=== PATIENT | male | born 1980 | race Caucasian/White ===

== ENCOUNTER 2017-01-26 15:02 | Emergency (ER) | payer OTHER ==
--- NOTE | 2017-01-26 16:48 | ED CLINICAL REPORT ---
Clinical Report - Physicians/Mid Levels [facility] [address] [place] [address] 01/26/2017 15:04 Patient: LEEANNE PIERCE Time Seen: 16:08 Jan 26 2017. Arrived- By private vehicle. Historian- patient. HISTORY OF PRESENT ILLNESS Chief Complaint: BACK PAIN. Onset was just prior to arrival and it is still present. It is described as being in the area of the mid lumbar spine. No bladder dysfunction or bowel dysfunction. Additional history - Reports doing some light activity on , and then lifting and opening of fridge up on Thursday, the and experiencing pain, pain not worsened with movement. Reports history of similar pain from a previous work-related injury with a bulging disc. Denies any new direct trauma or fall to the area. She has had previous MRI, previous injections, as well as has been using anti-inflammatories, Motrin as well as ice of the last 4 days. He has had. Patient notes a recent injury. REVIEW OF SYSTEMS No fever, chills, difficulty with urination, urinary frequency or cough. No difficulty breathing or nausea. All systems otherwise negative, except as recorded above. PAST HISTORY Problems: Back Pain. Medications: Ibuprofen Oral. Tramadol HCL Oral. Lyrica Oral. Allergies: No Known Drug Allergy. SOCIAL HISTORY Smoker- current status unknown. No alcohol use or drug use. ADDITIONAL NOTES The nursing notes have been reviewed. PHYSICAL EXAM Vital Signs: 01/26/2017 15:13 BP: 123/85. HR: 75. RR: 18. O2 saturation: 97%. Temp: 98.4 F. Pain level now: 9/10. Appearance: Alert. Eyes: Pupils equal, round and reactive to light. ENT: Ears normal. Neck: Normal inspection. No vertebral tenderness. CVS: Heart sounds normal. Pulses normal. Respiratory: No respiratory distress. Abdomen: No visible injury. Soft. Back: Soft tissue tenderness (Right lumbar region.). Neuro: Oriented X 3. No motor deficit. No sensory deficit. Reflex exam: right patellar 2+, left patellar 2+, right Achilles 2+ and left Achilles 2+. PROGRESS AND PROCEDURES Course of Care: patient with no red flags. No saddle anesthesia. No history of IV drug abuse. No direct trauma or fall. He able to ambulate. No imminent signs of paralysis. 01/26/2017 15:13 BP: 123/85. HR: 75. RR: 18. O2 saturation: 97%. Temp: 98.4 F. Pain level now: 9/10. Patient is stable. Symptoms better. Patient/family counseled. Disposition: Discharged. Condition: good. CLINICAL IMPRESSION Acute lumbar strain. INSTRUCTIONS Apply ice. Limit lifting. Rest. Prescription Medications: Hydrocodone/APAP 5mg / 325mg: take 1 orally every 6 hours as needed for pain. Dispense twelve (12). No refill. Valium 5 mg: take 1 orally every 12 hours for 5 days as needed for muscle spasm. Dispense ten (10). No refill. Substitution is permissible. Follow-up: Follow up with your doctor in three days. (Electronically signed by Mary Light P.A.-C 01/26/2017 16:25)
--- NOTE | 2017-01-26 16:48 | ED NURSING NOTES ---
Clinical Report - Nurses [facility] [address] [place] [address] 01/26/2017 15:04 Patient: LEEANNE PIERCE TRIAGE Triage time 1513. Acuity: LEVEL 4. Chief Complaint: BACK PAIN and (low back pain). LIANET COMA SCORE: Lianet Coma Scale: 15- eyes open spontaneously (4); best verbal response- oriented x 4 (5); best motor response- obeys commands (6). --15:22 Jacqueline Caballero R.N. 15:13 01/26/17. BP: 123/85 taken on the left arm, while lying. HR: 75. RR: 18 (unlabored). O2 saturation: 97% on room air. Temp: 98.4 F (oral). Pain level now: 06/21. --15:22 Jacqueline Caballero R.N. Weight: 103.4 kg stated. Height/Length: 75 inches Per Patient. BMI: 28.5. --15:13 Jacqueline Caballero R.N. Medications Lyrica Oral. --15:17 Jacqueline Caballero R.N. Tramadol HCL Oral. --15:17 Jacqueline Caballero R.N. Ibuprofen Oral. --15:17 Jacqueline Caballero R.N. Medication/allergy information source: the patient. --15:22 Jacqueline Caballero R.N. Allergies No Known Drug Allergy. --15:17 Jacqueline Caballero R.N. History Arrived by private vehicle. Historian: patient. Accompanied by spouse. Primary physician (Layla Zuniga). ( pt c/o low back pain since last , worse Thursday after bending over to get some ice from the freezer. pt c/o numbness and tingling down both legs, worse on the right. hx herniated disk, L4-L5.). Onset. (5 days). No history of recent trauma. 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 (ice, heat, used foam roller). SOCIAL HX: Light tobacco smoker (cigarette)- less than 1/2 a pack per day. No alcohol use or drug use. ABUSE ASSESSMENT: No report of abuse. FALL RISK ASSESSMENT: Fall risk assessment completed. No fall risk identified. NUTRITIONAL RISK ASSESSMENT: The nutritional risk assessment revealed no deficiencies. FUNCTIONAL ASSESSMENT: Functional assessment: no impairments noted. LEARNING NEEDS ASSESSMENT: The learning needs assessment revealed no barriers. SKIN INTEGRITY ASSESSMENT: Skin integrity risk assessment completed. No skin integrity risk identified. --15:22 Jacqueline Caballero R.N. PROBLEMS: Back Pain. --15:17 Jacqueline Caballero R.N. Interventions ID band on patient. To treatment room. --15:22 Jacqueline Caballero R.N. PHYSICAL ASSESSMENT 15:15. To room via wheelchair. GENERAL / NEURO / PSYCH: Alert. Oriented X 4. Appears in pain. He has had numbness of the right leg and left leg with tingling. RESPIRATORY: Respirations not labored. EXTREMITIES: Sensation intact in extremities. BACK: Limited ROM of the back (2nd to pain). --15:29 Jacqueline Caballero R.N. NURSING PROGRESS NOTES 15:15. Pulse oximeter and NIBP monitor placed on patient. Patient gowned. Head of bed elevated. Two patient identifiers checked. Call light placed in reach. Side rails up x 1. Bed placed in lowest position. Brakes of bed on. Patient ready for evaluation. --15:23 Jacqueline Caballero R.N. 15:54 01/26/2017 Valium (Diazepam) PO Tablets 10 mg given. Allergies verified, confirmed 5 rights and sedative warning given to the patient and patient's family. --15:54 Jacqueline Caballero R.N. 15:54 01/26/2017 Hydrocodone-APAP (Hydrocodone-Acetaminophen) PO 5/325 mg Tablets 1 tab given. Allergies verified, confirmed 5 rights and sedative warning given to the patient and patient's family. --15:54 Jacqueline Caballero R.N. pt continues to have severe pain when attempting to reposition on stretcher. pt states he's concerned about his pain. per pt he's unable to see his family doctor until next week. --16:41 Jacqueline Caballero R.N. DISPOSITION / DISCHARGE Departure time: 1700. Condition at departure: improved. No learning barriers present. Discharge instructions provided and reviewed with the patient and spouse. Reviewed medication(s). Prescription(s) given to the patient (Percocet, Flexeril). Patient verbalized understanding. Written instructions provided in Azeri. The patient was discharged by the physician community relations assistant. He was discharged home and accompanied by spouse. He left the Emergency Department ambulatory and via private vehicle. Medication list reviewed and validated with the patient. --17:06 Jacqueline Caballero R.N. 17:00 01/26/17. BP: 126/67. HR: 70. RR: 16 (unlabored). O2 saturation: 98% on room air. Temp: deferred. Pain level now: 02/18. --17:06 Jacqueline Caballero R.N. Locked/Released at 01/26/2017 17:07 by Jacqueline Caballero R.N.
--- NOTE | 2017-01-26 16:48 | ED ORDER SUMMARY ---
..... Patient: LEEANNE PIERCE OrderSheet [facility] VisitID: [id number] [place] [address] 36y, M Registration Date/Time: 01/26/2017 ORDER SHEET Weight: 103.4 kg (stated) Allergies: No Known Drug Allergy GENERAL ORDERS: MEDICATION ORDERS: Valium PO 10 mg (HIGH ALERT MEDICATION, NOW) (15:38 01/26/2017 Narciso P.A.-C) (Ack 15:49 HKone R.N.) (15:54 HKone R.N.) Hydrocodone-APAP PO 5/325 mg (NOW, HIGH ALERT MEDICATION) (15:38 01/26/2017 Narciso Michel.A.-C) (Ack 15:49 HKone R.N.) (15:54 HKone R.N.) IV FLUIDS: ORDER SHEET NOTES: [Electronically signed by Mary LightAMacr-Felix (16:25 01/26/2017)] [Electronically signed by Jacqueline Caballero R.N. (17:07 01/26/2017)] [Electronically locked/signed by Jacqueline Caballero R.N. (17:01/26/2017)]
--- NOTE | 2017-01-26 16:48 | ED CLINICAL REPORT ---
Clinical Report - Physicians/Mid Levels [facility] [address] [place] [address] 01/26/2017 15:04 Patient: LEEANNE PIERCE Time Seen: 16:08 Jan 26 2017. Arrived- By private vehicle. Historian- patient. HISTORY OF PRESENT ILLNESS Chief Complaint: BACK PAIN. Onset was just prior to arrival and it is still present. It is described as being in the area of the mid lumbar spine. No bladder dysfunction or bowel dysfunction. Additional history - Reports doing some light activity on , and then lifting and opening of fridge up on Thursday, the and experiencing pain, pain not worsened with movement. Reports history of similar pain from a previous work-related injury with a bulging disc. Denies any new direct trauma or fall to the area. She has had previous MRI, previous injections, as well as has been using anti-inflammatories, Motrin as well as ice of the last 4 days. He has had. Patient notes a recent injury. REVIEW OF SYSTEMS No fever, chills, difficulty with urination, urinary frequency or cough. No difficulty breathing or nausea. All systems otherwise negative, except as recorded above. PAST HISTORY Problems: Back Pain. Medications: Ibuprofen Oral. Tramadol HCL Oral. Lyrica Oral. Allergies: No Known Drug Allergy. SOCIAL HISTORY Smoker- current status unknown. No alcohol use or drug use. ADDITIONAL NOTES The nursing notes have been reviewed. PHYSICAL EXAM Vital Signs: 01/26/2017 15:13 BP: 123/85. HR: 75. RR: 18. O2 saturation: 97%. Temp: 98.4 F. Pain level now: 9/10. Appearance: Alert. Eyes: Pupils equal, round and reactive to light. ENT: Ears normal. Neck: Normal inspection. No vertebral tenderness. CVS: Heart sounds normal. Pulses normal. Respiratory: No respiratory distress. Abdomen: No visible injury. Soft. Back: Soft tissue tenderness (Right lumbar region.). Neuro: Oriented X 3. No motor deficit. No sensory deficit. Reflex exam: right patellar 2+, left patellar 2+, right Achilles 2+ and left Achilles 2+. PROGRESS AND PROCEDURES Course of Care: patient with no red flags. No saddle anesthesia. No history of IV drug abuse. No direct trauma or fall. He able to ambulate. No imminent signs of paralysis. 01/26/2017 15:13 BP: 123/85. HR: 75. RR: 18. O2 saturation: 97%. Temp: 98.4 F. Pain level now: 9/10. Patient is stable. Symptoms better. Patient/family counseled. Disposition: Discharged. Condition: good. CLINICAL IMPRESSION Acute lumbar strain. INSTRUCTIONS Apply ice. Limit lifting. Rest. Prescription Medications: Hydrocodone/APAP 5mg / 325mg: take 1 orally every 6 hours as needed for pain. Dispense twelve (12). No refill. Valium 5 mg: take 1 orally every 12 hours for 5 days as needed for muscle spasm. Dispense ten (10). No refill. Substitution is permissible. Follow-up: Follow up with your doctor in three days. (Electronically signed by Mary Light P.A.-C 01/26/2017 16:25)
--- NOTE | 2017-01-26 16:48 | ED NURSING NOTES ---
Clinical Report - Nurses [facility] [address] [place] [address] 01/26/2017 15:04 Patient: LEEANNE PIERCE TRIAGE Triage time 1513. Acuity: LEVEL 4. Chief Complaint: BACK PAIN and (low back pain). LIANET COMA SCORE: Lianet Coma Scale: 15- eyes open spontaneously (4); best verbal response- oriented x 4 (5); best motor response- obeys commands (6). --15:22 Jacqueline Caballero R.N. 15:13 01/26/17. BP: 123/85 taken on the left arm, while lying. HR: 75. RR: 18 (unlabored). O2 saturation: 97% on room air. Temp: 98.4 F (oral). Pain level now: 06/21. --15:22 Jacqueline Caballero R.N. Weight: 103.4 kg stated. Height/Length: 75 inches Per Patient. BMI: 28.5. --15:13 Jacqueline Caballero R.N. Medications Lyrica Oral. --15:17 Jacqueline Caballero R.N. Tramadol HCL Oral. --15:17 Jacqueline Caballero R.N. Ibuprofen Oral. --15:17 Jacqueline Caballero R.N. Medication/allergy information source: the patient. --15:22 Jacqueline Caballero R.N. Allergies No Known Drug Allergy. --15:17 Jacqueline Caballero R.N. History Arrived by private vehicle. Historian: patient. Accompanied by spouse. Primary physician (Layla Zuniga). ( pt c/o low back pain since last , worse Thursday after bending over to get some ice from the freezer. pt c/o numbness and tingling down both legs, worse on the right. hx herniated disk, L4-L5.). Onset. (5 days). No history of recent trauma. 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 (ice, heat, used foam roller). SOCIAL HX: Light tobacco smoker (cigarette)- less than 1/2 a pack per day. No alcohol use or drug use. ABUSE ASSESSMENT: No report of abuse. FALL RISK ASSESSMENT: Fall risk assessment completed. No fall risk identified. NUTRITIONAL RISK ASSESSMENT: The nutritional risk assessment revealed no deficiencies. FUNCTIONAL ASSESSMENT: Functional assessment: no impairments noted. LEARNING NEEDS ASSESSMENT: The learning needs assessment revealed no barriers. SKIN INTEGRITY ASSESSMENT: Skin integrity risk assessment completed. No skin integrity risk identified. --15:22 Jacqueline Caballero R.N. PROBLEMS: Back Pain. --15:17 Jacqueline Caballero R.N. Interventions ID band on patient. To treatment room. --15:22 Jacqueline Caballero R.N. PHYSICAL ASSESSMENT 15:15. To room via wheelchair. GENERAL / NEURO / PSYCH: Alert. Oriented X 4. Appears in pain. He has had numbness of the right leg and left leg with tingling. RESPIRATORY: Respirations not labored. EXTREMITIES: Sensation intact in extremities. BACK: Limited ROM of the back (2nd to pain). --15:29 Jacqueline Caballero R.N. NURSING PROGRESS NOTES 15:15. Pulse oximeter and NIBP monitor placed on patient. Patient gowned. Head of bed elevated. Two patient identifiers checked. Call light placed in reach. Side rails up x 1. Bed placed in lowest position. Brakes of bed on. Patient ready for evaluation. --15:23 Jacqueline Caballero R.N. 15:54 01/26/2017 Valium (Diazepam) PO Tablets 10 mg given. Allergies verified, confirmed 5 rights and sedative warning given to the patient and patient's family. --15:54 Jacqueline Caballero R.N. 15:54 01/26/2017 Hydrocodone-APAP (Hydrocodone-Acetaminophen) PO 5/325 mg Tablets 1 tab given. Allergies verified, confirmed 5 rights and sedative warning given to the patient and patient's family. --15:54 Jacqueline Caballero R.N. pt continues to have severe pain when attempting to reposition on stretcher. pt states he's concerned about his pain. per pt he's unable to see his family doctor until next week. --16:41 Jacqueline Caballero R.N. DISPOSITION / DISCHARGE Departure time: 1700. Condition at departure: improved. No learning barriers present. Discharge instructions provided and reviewed with the patient and spouse. Reviewed medication(s). Prescription(s) given to the patient (Percocet, Flexeril). Patient verbalized understanding. Written instructions provided in Welsh. The patient was discharged by the physician unit assistant. He was discharged home and accompanied by spouse. He left the Emergency Department ambulatory and via private vehicle. Medication list reviewed and validated with the patient. --17:06 Jacqueline Caballero R.N. 17:00 01/26/17. BP: 126/67. HR: 70. RR: 16 (unlabored). O2 saturation: 98% on room air. Temp: deferred. Pain level now: 02/18. --17:06 Jacqueline Caballero R.N. Locked/Released at 01/26/2017 17:07 by Jacqueline Caballero R.N.
--- NOTE | 2017-01-26 16:48 | ED ORDER SUMMARY ---
..... Patient: LEEANNE PIERCE OrderSheet [facility] VisitID: [id number] [place] [address] 36y, M Registration Date/Time: 01/26/2017 ORDER SHEET Weight: 103.4 kg (stated) Allergies: No Known Drug Allergy GENERAL ORDERS: MEDICATION ORDERS: Valium PO 10 mg (HIGH ALERT MEDICATION, NOW) (15:38 01/26/2017 Narciso P.A.-C) (Ack 15:49 HKone R.N.) (15:54 HKone R.N.) Hydrocodone-APAP PO 5/325 mg (NOW, HIGH ALERT MEDICATION) (15:38 01/26/2017 Narciso Michel.A.-C) (Ack 15:49 HKone R.N.) (15:54 HKone R.N.) IV FLUIDS: ORDER SHEET NOTES: [Electronically signed by Mary LightAMarc-Felix (16:25 01/26/2017)] [Electronically signed by Jacqueline Caballero R.N. (17:07 01/26/2017)] [Electronically locked/signed by Jacqueline Caballero R.N. (17:01/26/2017)]
--- NOTE | 2017-01-26 17:08 | ED MED RECONCILIATION SUMMARY ---
Patient: LEEANNE PIERCE Medication Reconciliation Report [facility] VisitID: [id number] [place] [address] 36y, M Registration Date/Time: 01/26/2017 Weight: 103.4 kg Height/Length: 75 in. BMI: 28.5 ALLERGIES: No Known Drug Allergy The patient's Home Medications are listed below: THE FOLLOWING MEDICATIONS NEED TO BE RECONCILED: Ibuprofen Oral Lyrica Oral Tramadol HCL Oral The source(s) of the original Home Medication information: patient The following Medications were given to the patient in the Emergency Department: Valium [PO] PO 10 mg, administered: 01/26/2017 3:54:00 PM Hydrocodone-APAP [PO] PO 1 tab, administered: 01/26/2017 3:54:00 PM The following Medications were prescribed to the patient: Hydrocodone/APAP 5mg / 325mg: take 1 orally every 6 hours as needed for pain. Dispense twelve (12). No refill. -- Mary Light, P.AEliceo Valium 5 mg: take 1 orally every 12 hours for 5 days as needed for muscle spasm. Dispense ten (10). No refill. Substitution is permissible. -- Mary Light P.A.-C
--- NOTE | 2017-01-26 17:08 | ED MED RECONCILIATION SUMMARY ---
Patient: LEEANNE PIERCE Medication Reconciliation Report [facility] VisitID: [id number] [place] [address] 36y, M Registration Date/Time: 01/26/2017 Weight: 103.4 kg Height/Length: 75 in. BMI: 28.5 ALLERGIES: No Known Drug Allergy The patient's Home Medications are listed below: THE FOLLOWING MEDICATIONS NEED TO BE RECONCILED: Ibuprofen Oral Lyrica Oral Tramadol HCL Oral The source(s) of the original Home Medication information: patient The following Medications were given to the patient in the Emergency Department: Valium [PO] PO 10 mg, administered: 01/26/2017 3:54:00 PM Hydrocodone-APAP [PO] PO 1 tab, administered: 01/26/2017 3:54:00 PM The following Medications were prescribed to the patient: Hydrocodone/APAP 5mg / 325mg: take 1 orally every 6 hours as needed for pain. Dispense twelve (12). No refill. -- Mary Light, P.AEliceo Valium 5 mg: take 1 orally every 12 hours for 5 days as needed for muscle spasm. Dispense ten (10). No refill. Substitution is permissible. -- Mary Light P.A.-C
--- NOTE | 2017-01-26 17:08 | ED MAR SUMMARY ---
..... Medication Administration Record [facility] [address] [place] [address] Patient: LEEANNE PIERCE Visit ID: [id number] 36y, M Weight: 103.4 kg Height/Length: 75 in BMI: 28.5 ALLERGIES: No Known Drug Allergy Given 15:01/26/2017 Jacqueline Caballero, R.N. Medication Administered: VALIUM [PO] (DIAZEPAM), Dose: 10 mg Tablets PO. Medication Ordered: Valium PO 10 mg (HIGH ALERT MEDICATION, NOW). Given 15:01/26/2017 Jacqueline Caballero, R.N. Medication Administered: HYDROCODONE-APAP [PO] (HYDROCODONE-ACETAMINOPHEN), Dose: 1 tab 5/325 mg Tablets PO. Medication Ordered: Hydrocodone-APAP PO 5/325 mg (NOW, HIGH ALERT MEDICATION).
--- NOTE | 2017-01-26 17:08 | ED MAR SUMMARY ---
..... Medication Administration Record [facility] [address] [place] [address] Patient: LEEANNE PIERCE Visit ID: [id number] 36y, M Weight: 103.4 kg Height/Length: 75 in BMI: 28.5 ALLERGIES: No Known Drug Allergy Given 15:01/26/2017 Jacqueline Caballero, R.N. Medication Administered: VALIUM [PO] (DIAZEPAM), Dose: 10 mg Tablets PO. Medication Ordered: Valium PO 10 mg (HIGH ALERT MEDICATION, NOW). Given 15:01/26/2017 Jacqueline Caballero, R.N. Medication Administered: HYDROCODONE-APAP [PO] (HYDROCODONE-ACETAMINOPHEN), Dose: 1 tab 5/325 mg Tablets PO. Medication Ordered: Hydrocodone-APAP PO 5/325 mg (NOW, HIGH ALERT MEDICATION).
--- NOTE | 2017-01-26 17:08 | ED DISCHARGE INSTRUCTIONS ---
Patient: LEEANNE PIERCE General Instructions Located Within [facility] VisitID: [id number] [place] [address] 36y, M Registration Date/Time: 01/26/2017 Acute lumbar strain. INSTRUCTIONS Apply ice. Limit lifting. Rest. Prescription Medications: Hydrocodone/APAP 5mg / 325mg: take 1 orally every 6 hours as needed for pain. Dispense twelve (12). No refill. Valium 5 mg: take 1 orally every 12 hours for 5 days as needed for muscle spasm. Dispense ten (10). No refill. Substitution is permissible. Follow-up: Follow up with your doctor in three days. ADDITIONAL INFORMATION Sciatica Sciatica ("Lumbar Radiculopathy") causes a pain that spreads from the lower back down into the buttock, hip and leg. Sometimes leg pain can occur without any back pain. Sciatica is due to irritation or pressure on a spinal nerve as it comes out of the spinal canal. This is most often due to a bulge or rupture of a nearby spinal disk (the cartilage cushion between each spinal bone), which presses on a nearby nerve. Other causes include spinal stenosis (narrowing of the spinal canal) and spasm of the pyriform muscle (a muscle in the buttocks that the sciatic nerve passes through). Sciatica may begin after a sudden twisting/bending force (such as in a car accident), or sometimes after a simple awkward movement. In either case, muscle spasm is commonly present and contributes to the pain. The diagnosis of sciatica is made from the symptoms and physical exam. Unless you had a physical injury (such as a car accident or fall), X-rays are usually not ordered for the initial evaluation of sciatica because the nerves and disks cannot be seen on an x-ray. If signs of a compressed nerve are present (for example, loss of tendon reflex or strength in the leg), an MRI (magnetic resonance imaging) scan will need to be scheduled as an outpatient. Most sciatica (80-90%) gets better with medicine, exercise, physical therapy. If symptoms continue after at least three months of medical treatment, surgery may be considered. Home Care: You may need to stay in bed the first few days. But, as soon as possible, begin sitting or walking to avoid problems with prolonged bed rest. When in bed, try to find a position of comfort. A firm mattress is best. Try lying flat on your back with pillows under your knees. You can also try lying on your side with your knees bent up towards your chest and a pillow between your knees. Avoid prolonged sitting. This puts more stress on the lower back than standing or walking. Some persons find relief with heat (hot shower, hot bath or heating pad) and massage, while others prefer cold packs (crushed or cubed ice in a plastic bag, wrapped in a towel). Try both and use the method that feels best for 20 minutes several times a day. You may use acetaminophen (Tylenol) or ibuprofen (Motrin, Advil) to control pain, unless another pain medicine was prescribed. [ NOTE: If you have chronic liver or kidney disease or ever had a stomach ulcer or GI bleeding, talk with your doctor before using these medicines.] Be aware of safe lifting methods and do not lift anything over 15 pounds until all the pain is gone. Follow Up with your doctor or this facility if your symptoms do not start to improve after one week. Physical therapy or further testing may be needed. [NOTE: If X-rays were taken, they will be reviewed by a radiologist. You will be notified of any new findings that may affect your care.] Get Prompt Medical Attention if any of the following occur: Pain becomes worse, not controlled by the prescribed medicine Weakness or numbness in one or both legs Numbness in the groin, genital area Loss of bowel or bladder control Hydrocodone Bitartrate, Acetaminophen Oral tablet What is this medicine? ACETAMINOPHEN; HYDROCODONE (a set a CIRILO lilian fen; richard droe KOE done) is a pain reliever. It is used to treat mild to moderate pain. How should I use this medicine? Take this medicine by mouth. Swallow it with a full glass of water. Follow the directions on the prescription label. If the medicine upsets your stomach, take the medicine with food or milk. Do not take more than you are told to take. Talk to your tower erector helper regarding the use of this medicine in children. This medicine is not approved for use in children. What side effects may I notice from receiving this medicine? Side effects that you should report to your doctor or health client care consultant as soon as possible: allergic reactions like skin rash, itching or hives, swelling of the face, lips, or tongue breathing problems confusion feeling faint or lightheaded, falls stomach pain yellowing of the eyes or skin Side effects that usually do not require medical attention (report to your doctor or health client care consultant if they continue or are bothersome): nausea, vomiting stomach upset What may interact with this medicine? alcohol antihistamines isoniazid medicines for depression, anxiety, or psychotic disturbances medicines for sleep muscle relaxants naltrexone narcotic medicines (opiates) for pain phenobarbital ritonavir tramadol What if I miss a dose? If you miss a dose, take it as soon as you can. If it is almost time for your next dose, take only that dose. Do not take double or extra doses. Where should I keep my medicine? Keep out of the reach of children. This medicine can be abused. Keep your medicine in a safe place to protect it from theft. Do not share this medicine with anyone. Selling or giving away this medicine is dangerous and against the law. Store at room temperature between 15 and 30 degrees C (59 and 86 degrees F). Protect from light. Keep container tightly closed. Throw away any unused medicine after the expiration date. Discard unused medicine and used packaging carefully. Pets and children can be harmed if they find used or lost packages. What should I tell my health care provider before I take this medicine? They need to know if you have any of these conditions: brain tumor Crohn's disease, inflammatory bowel disease, or ulcerative colitis drink more than 3 alcohol-containing drinks per day drug abuse or addiction head injury heart or circulation problems kidney disease or problems going to the bathroom liver disease lung disease, asthma, or breathing problems an unusual or allergic reaction to acetaminophen, hydrocodone, other opioid analgesics, other medicines, foods, dyes, or preservatives or trying to get breast-feeding What should I watch for while using this medicine? Tell your doctor or health client care consultant if your pain does not go away, if it gets worse, or if you have new or a different type of pain. You may develop tolerance to the medicine. Tolerance means that you will need a higher dose of the medicine for pain relief. Tolerance is normal and is expected if you take the medicine for a long time. Do not suddenly stop taking your medicine because you may develop a severe reaction. Your body becomes used to the medicine. This does NOT mean you are addicted. Addiction is a behavior related to getting and using a drug for a non-medical reason. If you have pain, you have a medical reason to take pain medicine. Your doctor will tell you how much medicine to take. If your doctor wants you to stop the medicine, the dose will be slowly lowered over time to avoid any side effects. You may get drowsy or dizzy when you first start taking the medicine or change doses. Do not drive, use machinery, or do anything that may be dangerous until you know how the medicine affects you. Stand or sit up slowly. There are different types of narcotic medicines (opiates) for pain. If you take more than one type at the same time, you may have more side effects. Give your health care provider a list of all medicines you use. Your doctor will tell you how much medicine to take. Do not take more medicine than directed. Call emergency for help if you have problems breathing. The medicine will cause constipation. Try to have a bowel movement at least every 2 to 3 days. If you do not have a bowel movement for 3 days, call your doctor or health client care consultant. Too much acetaminophen can be very dangerous. Do not take Tylenol (acetaminophen) or medicines that contain acetaminophen with this medicine. Many non-prescription medicines contain acetaminophen. Always read the labels carefully. You have been given the following additional information: Back Pain W/ Sciatica Hydrocodone Bitartrate, Acetaminophen Oral tablet Limit lifting. Rest. (Electronically signed by aMry Light P.A.-C 01/26/2017 16:25)
== END 2017-01-26 17:00 | disposition home or self-care (01) ==
LOC: ED SRH 15:02
DX: S39.012A Strain of muscle, fascia and tendon of lower back, initial encounter (principal); X50.0XXA Overexertion from strenuous movement or load, initial encounter; Y93.89 Activity, other specified; Y92.9 Unspecified place or not applicable; Y99.9 Unspecified external cause status; F17.210 Nicotine dependence, cigarettes, uncomplicated